=== PATIENT | male | born 1955 | race Caucasian/White ===

== ENCOUNTER 2018-02-06 14:36 | Inpatient (IN) | payer OTHER ==
[~2018-02-06 14:36] MED LIST: Aminocaproic Acid 5 GM/20 ML VIAL ONE; Cardioplegic Soln 1,000 ML BAG ONE; Dextrose 50% Abboject 50 ML SYRINGE ONE; Glycopyrrolate 0.2 MG/ML 5 ML SYRINGE ONE; Heparin 30,000 units/30 ml VIAL ONE; Heparin 5,000 UNITS/ML VIAL ONE; Hydrocortisone Sod Succ/PF 100 mg/2 ml Vial ONE; Lidocaine 2% PF 100 mg/5 ml Syringe ONE; Magnesium 5 GM/10 ML VIAL ONE; Mannitol 12.5 GM/50 ML ONE; PHENYLEPHRINE-NS 100 MCG/ML 10 ML SYRINGE ONE; PROPOFOL 200 MG/20 ML VIAL ONE; Papaverine 60 MG/2 ML VIAL ONE; Potassium Chloride 60 MEQ/30 ML VIAL ONE; Protamine Sulfate 250 MG/25 ML VIAL ONE; Sodium Bicarb 50 MEQ/50 ML VIAL ONE; Thrombin 5000 UNITS/5 ML VIAL ONE; Vecuronium 10 MG VIAL ONE; ePHEDrine/0.9% NaCl/PF SYRINGE 50 mg/10 ml ONE
[2018-02-06] MEDS ORDERED: Fentanyl 100 MCG/2 ML VIAL ONE (14:54)
[2018-02-06] MEDS ORDERED: Midazolam HCl 2 mg/2 ml Vial ONE (14:54)
[2018-02-06] MEDS ORDERED: Heparin 10,000 UNITS/1 ML VIAL ONE ×2 (14:55→15:41)
[2018-02-06 14:56] LABS: #Basophils 0.1 thou/uL (0.0-0.2); #Eosinphils 0.1 thou/uL (0.0-0.7); #Lymphocytes 1.9 thou/uL (1.20-3.40); #Monocytes 0.9 thou/uL (0.11-0.59); %Basophils 0.7 % (0.0-1.0); %Eosinophils 0.8 % (0.0-10.0); %Lymphocytes 14.9 % (21.0-51.0); %Monocytes 7.2 % (0.0-10.0); %Neutrophils 76.5 % (42.0-75.0); Hemoglobin 18.4 g/dL (14.0-18.0); Mean Corpuscular HGB CONC 33.9 g/dL (32.0-36.0); Mean Corpuscular Hemoglobin 32.5 pg (27.0-31.0); Mean Corpuscular Volume 95.7 fL (78.0-98.0); Mean Platelet Volume 7.7 fL (7.4-10.4); Platelet Count 172 thou/uL (130-400); RBC Distribution Width 13.5 % (11.5-14.5); Red Blood Cell (RBC) Count 5.66 mill/uL (4.70-6.10)
[2018-02-06] MEDS ORDERED: Metoprolol Tartrate 5 MG/5 ML VIAL ONE ×2 (15:01→15:15)
[2018-02-06 15:04] LABS: INR-International Normal Ratio 0.9; PTT 30.7 SEC (22.9-36.1); Prothrombin Time 12.7 SEC (12.0-14.7)
[2018-02-06 15:10] LABS: ALT (SGPT) 39 U/L (8-55); AST (SGOT) 61 U/L (5-34); Albumin 4.5 g/dL (3.5-5.0); Alkaline Phosphatase 55 U/L (40-150); Anion Gap 14 mmol/L (10-20); BUN (Urea Nitrogen) 16 mg/dL (8.4-25.7); Bilirubin, Total 1.4 mg/dL (0.2-1.2); Calc. Creatinine Clearance 0 mL/min (70-130); Calcium 9.9 mg/dL (7.8-10.44); Carbon Dioxide 21 mmol/L (22-29); Chloride 101 mmol/L (98-107); Estimated GFR-MDRD 80; Glucose 100 mg/dL (70-105); Potassium 4.2 mmol/L (3.5-5.1); Protein, Total 7.5 g/dL (6.0-8.3); Sodium 132 mmol/L (136-145)
[2018-02-06] MEDS ORDERED: Iopamidol 370 76% 100 ML VIAL ONE (15:12)
[2018-02-06] MEDS ORDERED: Nitroglycerin 50 MG/250 ML BOT 250 ML ONE ×2 (15:15→16:00)
[2018-02-06 15:25] LABS: CKMB 46.1 ng/mL (0-6.6); Troponin I 6.362 ng/mL (< 0.028)
[2018-02-06] MEDS ORDERED: Albumin 5% 0 ML ONE (15:42)
[2018-02-06] MEDS ORDERED: Lidocaine 1% (PF) 30 ML VIAL ONE (15:44)
[2018-02-06] MEDS ORDERED: Fentanyl 250 MCG/5 ML VIAL ONE (15:59)
[2018-02-06] MEDS ORDERED: Midazolam HCl 5 mg/5 ml Vial ONE (15:59)
[2018-02-06] MEDS ORDERED: Vecuronium 10 MG VIAL ONE (16:00)
[2018-02-06] MEDS ORDERED: Phenylephrine HCL 10 MG/ML VIAL ONE (16:00)
[2018-02-06] MEDS ORDERED: Norepinephrine 8 MG/0.9% NS 250 ML ONE (16:00)
[2018-02-06] MEDS ORDERED: Lidocaine 2% PF Inj 2 ML VIAL ONE (18:44)
[2018-02-06] MEDS ORDERED: Insulin Regular 300 UNITS/3 ML VIAL ONE (19:06)
[2018-02-06] MEDS ORDERED: Calcium Chloride 1 GM/10 ML Abboject SYRINGE ONE (19:06)
[2018-02-06] MEDS ORDERED: Rocuronium Bromide 50 MG/5 ML VIAL ONE (19:24)
[2018-02-06] MEDS ORDERED: Amiodarone In Dextrose 200 ML IVPB SCH (20:33)
[2018-02-06] MEDS ORDERED: Hetastarch 6% 500 ML 500 ML IVPB PRN (20:33)
[2018-02-06] MEDS ORDERED: Norepinephrine 8 MG/0.9% NS 250 ML IVPB PRN (20:33)
[2018-02-06] MEDS ORDERED: Bisacodyl 5 MG TAB PO PRN (20:33)
[2018-02-06] MEDS ORDERED: Mag-Al 1200 mg/1200 mg/30 ML UDCUP PO PRN (20:33)
[2018-02-06] MEDS ORDERED: Post-Op Insulin Drip Protocol IVPB ONE (20:33)
[2018-02-06] MEDS ORDERED: Promethazine HCl 25 MG/ML VIAL IM PRN (20:33)
[2018-02-06] MEDS ORDERED: Potassium Chloride 20 MEQ/100 ML PREMIX BAG IVPB PRN (20:33)
[2018-02-06] MEDS ORDERED: Ondansetron HCl/PF 4 MG/2 ML Vial IVP PRN (20:33)
[2018-02-06] MEDS ORDERED: Guaifenesin DM 100-10/5 ML UDCUP PO PRN (20:33)
[2018-02-06] MEDS ORDERED: Bisacodyl 10 MG SUPP PR PRN (20:33)
[2018-02-06] MEDS ORDERED: Nitroglycerin 50 MG/250 ML BOT 250 ML IVPB PRN (20:33)
[2018-02-06] MEDS ORDERED: Fentanyl 100 MCG/2 ML VIAL SLOW IVP PRN (20:33)
[2018-02-06] MEDS ORDERED: Magnesium 2 GM/NS 0.9% 100 ML 2 GM in Premix Bag 1 BAG IVPB SCH (20:33)
[2018-02-06] MEDS ORDERED: Acetaminophen 325 MG TAB PO PRN (20:33)
[2018-02-06] MEDS ORDERED: Phenylephrine 10 MG/NS 250 ML 250 ML IVPB PRN (20:33)
[2018-02-06 20:36] LABS: Actual Bicarbonate (HCO3a) 23.3 mEq/L (22-28); Analyzer IN Cardio ER; Base Excess (BEa) -5.5 mEq/L (-2.0 to +3.0); CO2 Tension 59.2 mmHg (35.0-45.0); Calcium, Ionized 1.17 mmol/L (1.12-1.30); Carboxyhemoglobin (COHb) 2.4 gm% (0.0-3.0); Hemoglobin (Hb) 15.3 g/dL (14.0-18.0); Potassium - ABG Lab 4.29 mmol/L (3.70-5.30)
[2018-02-06] MEDS ORDERED: Dextrose 5% in Water 1,000 ML IV PRN (20:36)
[2018-02-06] MEDS ORDERED: Dextrose 50% Abboject 50 ML SYRINGE SLOW IVP PRN (20:36)
[2018-02-06 20:48] LABS: pH, Arterial 7.21 (7.35-7.45)
[2018-02-06 20:51] LABS: #Eosinphils 0.1 thou/uL (0.0-0.7); #Lymphocytes 2.3 thou/uL (1.20-3.40); #Monocytes 1.2 thou/uL (0.11-0.59); #Neutrophils 15.4 thou/uL (1.40-6.50); %Basophils 0.2 % (0.0-1.0); %Eosinophils 0.6 % (0.0-10.0); %Lymphocytes 12.1 % (21.0-51.0); %Monocytes 6.3 % (0.0-10.0); %Neutrophils 80.8 % (42.0-75.0); Hemoglobin 14.8 g/dL (14.0-18.0); Mean Corpuscular HGB CONC 33.6 g/dL (32.0-36.0); Mean Corpuscular Hemoglobin 32.8 pg (27.0-31.0); Mean Corpuscular Volume 97.5 fL (78.0-98.0); Mean Platelet Volume 7.9 fL (7.4-10.4); Platelet Count 149 thou/uL (130-400); RBC Distribution Width 13.3 % (11.5-14.5); Red Blood Cell (RBC) Count 4.52 mill/uL (4.70-6.10)
[2018-02-06 20:53] LABS: Puncture Site LINE
[2018-02-06] MEDS ORDERED: Sodium Bicarb 50 MEQ/50 ML Abboject 8.4% SYRINGE ONE ×2 (20:53→20:58)
--- NOTE | 2018-02-06 20:53 | RAD ---
CHEST ONE VIEW: 02/06/18 HISTORY: Heart surgery. FINDINGS: Cardiac silhouette is magnified by projection. Pulmonary vasculature upper limits of normal. Mediasti num is midline with postoperative changes. Mediastinal drains are in place. Left thoracostomy tube is directed towards the apex. Tip of an endotracheal catheter overlies the thoracic inlet. Tip of a rig ht subclavian central venous catheter overlies the right atrium. die developer leads overlie the ch est. IMPRESSION: Lines and tubes are in good radiographic position. Postoperative changes of the chest. POS: [facility]
[2018-02-06 20:55] LABS: INR-International Normal Ratio 1.2; PTT 32.1 SEC (22.9-36.1); Prothrombin Time 15.6 SEC (12.0-14.7)
[2018-02-06] MEDS ORDERED: Famotidine/PF 20 mg/2ml Vial SLOW IVP SCH (21:00)
[2018-02-06 21:05] LABS: Anion Gap 9 mmol/L (10-20); BUN (Urea Nitrogen) 16 mg/dL (8.4-25.7); Calc. Creatinine Clearance 0 mL/min (70-130); Carbon Dioxide 23 mmol/L (22-29); Chloride 106 mmol/L (98-107); Estimated GFR-MDRD 65; Glucose 175 mg/dL (70-105); Potassium 4.4 mmol/L (3.5-5.1); Sodium 134 mmol/L (136-145)
[2018-02-06] MEDS: Insulin Regular 300 UNITS/3 ML VIAL SC PRN ×2 (21:17→23:52)
--- NOTE | 2018-02-06 21:18 | CON ---
DATE OF CONSULTATION: 02/06/2018 REASON FOR CONSULTATION: Evaluate patient for urgent coronary artery bypass grafting. HISTORY OF PRESENT ILLNESS: Mr. Flores is a 62-year-old gentleman who presented through the emergency department this evening. He had acute diffuse ST elevation on his EKG, was build was STEMI and was urgently taken to the track laborer. During cardiac catheterization, he was found to have a severe mid to proximal LAD stenosis. He also has a bifurcated circumflex that has severe stenosis in it. Right c oronary has no surgically significant disease. Ejection fraction is approximately 70% with some apic al hypokinesis. Currently, the patient is chest pain free, but he has been having chest pain on and off all day today. PAST MEDICAL HISTORY: Hypertension. SOCIAL HISTORY: He smokes 1-2 packs of cigarettes a day, although his voice sounds like he may have smoked a significant amount more than that in the past. ALLERGIES: None. CURRENT MEDICATIONS: 1. Amlodipine 10 mg daily. 2. Benazepril/HCTZ 20/12.5 b.i.d. 3. ProAir 2 puffs q.i.d. p.r.n. 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 LUNGS: Have bilateral wheezes. HEART: Rhythm is regular. ABDOMEN: Soft, nontender. EXTREMITIES: No edema. He has a right femoral sheath in place. ASSESSMENT AND PLAN: This is a 62-year-old gentleman with a significant tobacco use, history of hype rtension with severe LAD, circumflex disease that was not amenable to stenting. I have discussed cor onary artery bypass grafting with left internal mammary artery to LAD and saphenous vein graft to OM1 and OM2. He is agreeable. We will get him over the operating room as soon as possible.
[2018-02-06] MEDS: Sodium Chloride 0.9% 1,000 ML IV SCH (21:23)
[2018-02-06] MEDS: CEFAZOLIN/Water 2 GM/20 ML SYRINGE SLOW IVP SCH (21:24)
[2018-02-06] MEDS ORDERED: Magnesium 2 GM/50 ML 2 GM in Premix Bag 1 BAG IVPB SCH (21:30)
--- NOTE | 2018-02-06 21:30 | HP ---
DATE OF CONSULTATION: 02/06/2018 REASON FOR ADMISSION: Acute myocardial infarction. HISTORY OF PRESENT ILLNESS: Mr. Deny Flores is a 62-year-old man. He presented to see Dr. Srivastava in her office today because he had chest pain for 2 days, but is coming and going, getting worse. EK G in the office showed ST elevation and ambulance was called. He was transferred to [place]. The patient was given aspirin and intravenous nitroglycerin with improvement, but not complete resolutio n of chest pain. The pain had the pain that is coming and going as mentioned. The patient smoked one and a half pack cigarettes per day. He has history of hypertension. He is no t certain of the blood pressure medicine name. He has reactive airway disease "asthma" and takes Pro Air. ALLERGIES: None known. He is not allergic to iodine. No previous cardiac history. SOCIAL HISTORY: Smokes 1.5 packs of cigarettes per day. FAMILY HISTORY: Unknown at this time. REVIEW OF SYSTEMS: Constitutional: No significant weight gain or loss. Vision: No changes. Heari ng: No changes. Pulmonary: Intermittent need for inhaled bronchodilators. Cardiac: As outlined a danilo. Severe chest pain. Gastrointestinal: No nausea, vomiting, diarrhea. Skin: No rashes. Neur ologic: No unilateral weakness or numbness. Psychiatric: No unusual depression or anxiety. PHYSICAL EXAMINATION: GENERAL: A 62-year-old gentleman with chest pain. VITAL SIGNS: Blood pressure 130/70, pulse initially 90. EYES: Sclerae nonicteric. Mouth mucous membranes moist. NECK: Supple, no lymphadenopathy. LUNGS: Clear, no wheezing, rales or rhonchi. CARDIOVASCULAR: Normal S1, normal S2. There is no murmur, rub or gallop. ABDOMEN: Soft, nontender, no hepatosplenomegaly. EXTREMITIES: Warm, dry, no clubbing or cyanosis. There is no edema. Peripheral pulses seem to be d iminished in the right foot. DIAGNOSTIC DATA: EKG did show some concave up ST elevation on initial EKG. The patient was taken emergently to the cardiac catheterization lab and was found to have complicated LAD and circumflex bifurcation disease, the LAD disease, two lesions 80% proximal then a more distal 70% lesion. The very distal LAD appeared to be occluded at the tip of the apex. They appeared "hazy." The circumflex had a complicated bifurcation disease. The right coronary had 20-30% plaque. Ejection fraction 55%. The anterior wall is normal except for the apex being akinetic. CONCLUSION: 1. Severe 2-vessel coronary artery disease with evidence of myocardial infarction but with patent ar teries. 2. He also has peripheral vascular disease, noted to have superficial femoral artery occlusion at th e time of catheterization, also some iliac disease and possibly a small dissection in the iliac area, but it appears stable with good flow. PLAN: The patient was advised to undergo emergent coronary artery bypass grafting. This is being ar ranged.
[2018-02-06 21:39] VITALS: BMI 28.5
[2018-02-06] MEDS: Ketorolac Tromethamine 30 MG/ML VIAL IVP SCH (23:31)
[2018-02-06] MEDS ORDERED: Amiodarone HCl 450 MG, Admixture Fee 1 EACH in Dextrose 5% in Water 250 ML IVPB SCH (23:45)
--- NOTE | 2018-02-07 01:30 | OP ---
DATE OF OPERATION: 02/06/2018 PREOPERATIVE DIAGNOSES: Coronary artery disease/ST-elevation myocardial infarction. POSTOPERATIVE DIAGNOSES: Coronary artery disease/ST-elevation myocardial infarction. PROCEDURES: Coronary artery bypass grafting x3: 1. Left internal mammary artery to 2.0 mm mid left anterior descending - good conduit and target. 2. Reverse saphenous vein in sequence to 2.0 mm OM1 and 1.0 mm OM2 - good conduit with small distal target. SURGEON: Rubin Chi MD ANESTHESIA: General endotracheal - Dr. Gagan Martinez and Sajan Chu CRNA PUMP TIME: 77 minutes. CROSS-CLAMP TIME: 33 minutes. LOW CORE TEMP: 32-degree Celsius. OCCUPATIONAL NURSE: Juan Gabriel. DRAINS: 24-Peruvian chest tube x2. DRIPS: Amiodarone. TRANSFUSIONS: None. DESCRIPTION OF PROCEDURE: After consent was obtained, the patient was brought to the operating room and placed supine on the operating room table. Appropriate anesthetic monitor was placed and general endotracheal anesthesia induced. Chest, abdomen, and legs were prepped and draped in usual sterile fashion. Greater saphenous vein was harvested from the left lower extremity, utilizing an endoscopic technique. Wound was irrigated and closed in layers. Median sternotomy was performed. Left rn international al mammary artery was harvested as a pedicle graft. The patient was systemically heparinized. Dista l pedicle was divided and infused with papaverine. Thymic fat and pericardium were divided with elec trocautery. Pericardial stay sutures placed. Aortic and atrial cannulation was performed. After ad equate heparinization, the patient was placed on cardiopulmonary bypass. Distal targets were marked. Aortic cross-clamp was applied and antegrade sanguinous cardioplegic arrest obtained. One liter of antegrade cold [place] cardioplegia was given. Topical cold solution was used. Reverse saphenous vein was anastomosed in a cvsx-df-emor fashion with OM1 and end-to-side fashion with the OM2. The OM 2 was dilated with a 1-mm probe prior to completion of anastomosis. Mammary artery was brought throu gh a window in the pericardium and anastomosed the mid LAD in end-to-side fashion with running 7-0 Pr olene suture. On release of mammary clamps, good hooding anastomosis and good distal flow. Pedicle screw with interrupted 6-0 Prolene suture. Cross-clamp was removed. Partial occluding clamp placed. Saphenous vein was anastomosed the aortic root with running 6-0 Prolene suture. Partial occluding clamp was removed and grafts deaired. On removing the partial occluding clamp, the patient fibrillat ed. Multiple attempts at defibrillation were performed. Lidocaine and amiodarone loading dose were given. The patient was then placed on amiodarone drip. The patient was eventually defibrillated. T he potassium was checked and came back at 6.2. The patient was given insulin, glucose, and calcium. Recheck of potassium came back at 5. Patient maintained sinus rhythm after loading the dose of amio darone. The patient was also given magnesium. The amiodarone drip was started. The patient was war med and weaned from cardiopulmonary bypass. After resumption of sinus rhythm, good hemodynamics, and temperature greater than 36.5, bypass was discontinued. Transfusions were given. Protamine was adm inistered. Decannulation was performed and pursestring sutures secured. A 24-Peruvian chest tubes x2 were placed in mediastinum. Sternum was treated with vancomycin paste. After adequate hemostasis lucio d been obtained, sternum was closed with #7 wire, 3 in the manubrium and 1 in the distal sternum. Fi ve zip ties were placed in the body of the sternum. Sternum was treated with platelet-rich plasma an d wires twisted. Zip ties were tightened and cut. Wounds irrigated, treated with platelet-poor plas ma, and closed in multiple layers. Needle, sponge, and instrument counts were all reported as correc t at the end of the procedure. The patient was transferred to the intensive care unit in stable, but critical condition.
[2018-02-07] MEDS: Fentanyl 100 MCG/2 ML VIAL SLOW IVP PRN ×4 (01:43→21:35)
[2018-02-07 02:38] LABS: Hemoglobin 15.1 g/dL (14.0-18.0)
[2018-02-07 02:50] LABS: #Monocytes 0.9 thou/uL (0.11-0.59); #Neutrophils 11.1 thou/uL (1.40-6.50); %Basophils 0.1 % (0.0-1.0); %Eosinophils 0.1 % (0.0-10.0); %Lymphocytes 7.8 % (21.0-51.0); %Monocytes 6.9 % (0.0-10.0); %Neutrophils 85.1 % (42.0-75.0); Mean Corpuscular HGB CONC 33.3 g/dL (32.0-36.0); Mean Corpuscular Hemoglobin 32.2 pg (27.0-31.0); Mean Corpuscular Volume 96.6 fL (78.0-98.0); Platelet Count 141 thou/uL (130-400); RBC Distribution Width 13.4 % (11.5-14.5); Red Blood Cell (RBC) Count 4.67 mill/uL (4.70-6.10)
[2018-02-07 02:51] LABS: Potassium 4.4 mmol/L (3.5-5.1)
[2018-02-07] MEDS: HYDROcodone/Acetaminophen 5/325 mg Tablet PO PRN ×5 (03:10→21:11)
[2018-02-07 03:14] LABS: Anion Gap 11 mmol/L (10-20); BUN (Urea Nitrogen) 19 mg/dL (8.4-25.7); Calc. Creatinine Clearance 102 mL/min (70-130); Calcium 7.9 mg/dL (7.8-10.44); Carbon Dioxide 20 mmol/L (22-29); Chloride 108 mmol/L (98-107); Estimated GFR-MDRD 70; Glucose 147 mg/dL (70-105); Potassium 4.3 mmol/L (3.5-5.1); Sodium 135 mmol/L (136-145)
[2018-02-07] MEDS: Insulin Regular 300 UNITS/3 ML VIAL SC PRN (04:33)
[2018-02-07] MEDS: CEFAZOLIN/Water 2 GM/20 ML SYRINGE SLOW IVP SCH ×2 (05:00→12:58)
[2018-02-07] MEDS: Ketorolac Tromethamine 30 MG/ML VIAL IVP SCH ×4 (05:24→23:36)
[2018-02-07 06:55] LABS: Hemoglobin A1c 5.2 % (4.0-6.0)
[2018-02-07] MEDS: Sodium Chloride 0.9% 1,000 ML IV SCH ×2 (07:18→17:05)
[2018-02-07] MEDS: Famotidine 20 MG TAB PO SCH ×2 (08:34→20:37)
[2018-02-07] MEDS: Aspirin 325 MG TAB PO SCH (08:34)
[2018-02-07] MEDS: Magnesium 2 GM/50 ML 2 GM in Premix Bag 1 BAG IVPB SCH (08:35)
--- NOTE | 2018-02-07 08:46 | RAD ---
PORTABLE AP CHEST XRAY: DATE: 02/07/2018. HISTORY: Post open heart surgery. Followup evaluation. COMPARISON: 02/06/2018. FINDINGS: The endotracheal tube has been removed. The right subclavian central venous catheter, mediastinal dr ain, and left-sided thoracostomy tube remains stable in position. Median sternotomy wires are again present. Cardiac silhouette and pulmonary vasculature e within normal limits. There is mild subsegm ental atelectasis in the left mid lung zone, but there has been improvement in the linear opacities w ithin the left upper lung zone compared to the prior exam. No other interval change. IMPRESSION: Interval removal of the endotracheal tube with improvement in atelectasis in the left upper lung zone . There is mild atelectasis now present in the left mid lung zone and at the medial right lung base. POS: [facility]
[2018-02-07] MEDS ORDERED: Magnesium 2 GM/NS 0.9% 100 ML 2 GM in Premix Bag 1 BAG IVPB SCH (09:00)
[2018-02-07] MEDS ORDERED: Amiodarone 200 MG TAB PO SCH (10:15)
[2018-02-07] MEDS ORDERED: Colchicine 0.6 MG TAB PO SCH (10:15)
--- NOTE | 2018-02-07 10:34 | PRG ---
DATE OF SERVICE: 02/07/2018 SUBJECTIVE: Mr. Flores is doing okay. He is having a lot chest pain in the postoperative period. PHYSICAL EXAMINATION: VITAL SIGNS: Blood pressure 104/60, pulse 66 regular. LUNGS: Clear. Some occasional rhonchi. CARDIAC: Normal S1, normal S2. IMAGING: EKG reveals some concave up ST elevation in the postoperative period compatible with perica rditis. In talking further with Mr. Flores, he did have probably the most severe chest pain 2 days pr ior to going to the doctor yesterday and had recurrent chest pain following that. ASSESSMENT: 1. Status post myocardial infarction related to the distal LAD probably occurred a few days ago. 2. Chest pain much that may have been pericarditis in the post myocardial infarction. 3. Status post emergency bypass surgery for complicated coronary artery disease as outlined above. PLAN: 1. We will start low dose colchicine as a lot of his pain now is probably pericarditis. 2. High risk for atrial fibrillation, may need amiodarone. 3. Inhaled bronchodilators. 4. We will go ahead and start at least moderate dose of amiodarone as there is a very high probabili ty of going into atrial fibrillation.
[2018-02-07] MEDS: Atorvastatin Calcium 40 MG TAB PO SCH (20:36)
[2018-02-07] MEDS: Colchicine 0.6 MG TAB PO SCH (20:37)
[2018-02-07] MEDS: Amiodarone 200 MG TAB PO SCH (20:37)
[2018-02-08] MEDS: Sodium Chloride 0.9% 1,000 ML IV SCH (01:49)
[2018-02-08] MEDS: HYDROcodone/Acetaminophen 5/325 mg Tablet PO PRN ×4 (02:11→21:14)
[2018-02-08] MEDS: Fentanyl 100 MCG/2 ML VIAL SLOW IVP PRN (05:17)
[2018-02-08 05:35] LABS: Anion Gap 7 mmol/L (10-20); BUN (Urea Nitrogen) 18 mg/dL (8.4-25.7); Calc. Creatinine Clearance 129 mL/min (70-130); Calcium 8.2 mg/dL (7.8-10.44); Carbon Dioxide 26 mmol/L (22-29); Chloride 104 mmol/L (98-107); Estimated GFR-MDRD Greater than 90; Glucose 104 mg/dL (70-105); Potassium 4.4 mmol/L (3.5-5.1); Sodium 133 mmol/L (136-145)
[2018-02-08 05:59] LABS: #Lymphocytes 1.1 thou/uL (1.20-3.40); #Monocytes 0.6 thou/uL (0.11-0.59); #Neutrophils 5.6 thou/uL (1.40-6.50); %Basophils 0.1 % (0.0-1.0); %Eosinophils 0.1 % (0.0-10.0); %Lymphocytes 15.4 % (21.0-51.0); %Neutrophils 76.5 % (42.0-75.0); Hemoglobin 12.2 g/dL (14.0-18.0); Mean Corpuscular HGB CONC 33.5 g/dL (32.0-36.0); Mean Corpuscular Hemoglobin 32.7 pg (27.0-31.0); Mean Corpuscular Volume 97.5 fL (78.0-98.0); Mean Platelet Volume 8.3 fL (7.4-10.4); PLT Morphology Comment Appears Decreased; Platelet Count 98 thou/uL (130-400); RBC Distribution Width 13.2 % (11.5-14.5); RBC Morphology Normal; Red Blood Cell (RBC) Count 3.74 mill/uL (4.70-6.10); White Blood Cell (WBC) Count 7.3 thou/uL (4.8-10.8)
[2018-02-08 06:12] LABS: Band 7 % (5-11); Lymphocytes 7 % (21-51); MDiff Complete? YES; Monocytes 9 % (0-10); Neutrophil 76 % (42-75); Reactive Lymphocytes 1 % (0-10)
[2018-02-08] MEDS: Ketorolac Tromethamine 30 MG/ML VIAL IVP SCH ×3 (06:15→17:40)
--- NOTE | 2018-02-08 08:41 | EKG ---
Test Reason : Blood Pressure : / mmHG Vent. Rate : 054 BPM Atrial Rate : 054 BPM P-R Int : 162 ms QRS Dur : 094 ms QT Int : 478 ms P-R-T Axes : 025 037 040 degrees QTc Int : 453 ms Sinus bradycardia Possible Acute pericarditis ST elevation diffusely, must also consider early repolarization. Abnormal ECG When compared with ECG of 06-FEB-2018 14:38, (Unconfirmed) Vent. rate has decreased BY [address] less elevated in Lateral leads Confirmed by IESHA BRANCH ([id number]) on 02/08/2018 8:40:44 AM Referred By: NAFISA Confirmed By:IESHA BRANCH
[2018-02-08] MEDS: Amiodarone 200 MG TAB PO SCH ×2 (09:15→21:13)
[2018-02-08] MEDS: Colchicine 0.6 MG TAB PO SCH ×2 (09:15→21:13)
[2018-02-08] MEDS: Aspirin 325 MG TAB PO SCH (09:15)
[2018-02-08] MEDS: Magnesium 2 GM/50 ML 2 GM in Premix Bag 1 BAG IVPB SCH (09:16)
[2018-02-08] MEDS: Famotidine 20 MG TAB PO SCH ×2 (09:16→21:13)
--- NOTE | 2018-02-08 10:02 | RAD ---
FRONTAL VIEW CHEST: COMPARISON: Previous day. INDICATION: Thoracic surgery, followup. FINDINGS: Right subclavian venous catheter remains. Prior left thoracostomy tube is no longer visualized. Pro minence of the cardiomediastinal silhouette and pulmonary vasculature present. There is a pleural-ba sed density at the inferior left chest indicating pleural fluid. Subtle left rib deformities are sta ble. IMPRESSION: 1. Evidence of fluid overload. 2. Removal of prior left chest tube. 3. Recommend continued followup. POS: [facility]
[2018-02-08] MEDS ORDERED: Bisacodyl 5 MG TAB PO PRN (10:58)
[2018-02-08] MEDS ORDERED: diphenhydrAMINE 25 MG CAP PO PRN (10:58)
[2018-02-08] MEDS ORDERED: Zolpidem Tartrate 5 MG TAB PO PRN (10:58)
[2018-02-08] MEDS ORDERED: Artificial Tears 18 DROP/0.9 ML EA EYE PRN (10:58)
[2018-02-08] MEDS ORDERED: Mag-Al 1200 mg/1200 mg/30 ML UDCUP PO PRN (10:58)
[2018-02-08] MEDS ORDERED: Guaifenesin DM 100-10/5 ML UDCUP PO PRN (10:58)
[2018-02-08] MEDS ORDERED: Mineral Oil ENEMA PR PRN (10:58)
[2018-02-08] MEDS ORDERED: Nitroglycerin 0.4 MG TAB (25 Tab Bottle) SL PRN (10:58)
[2018-02-08] MEDS ORDERED: Bisacodyl 10 MG SUPP PR PRN (10:58)
[2018-02-08] MEDS ORDERED: guaiFENesin ER 600 MG TAB PO SCH (11:15)
[2018-02-08] MEDS ORDERED: Furosemide 40 MG/4 ML VIAL SLOW IVP SCH (11:15)
[2018-02-08] MEDS: guaiFENesin ER 600 MG TAB PO SCH (21:12)
[2018-02-08] MEDS: Atorvastatin Calcium 40 MG TAB PO SCH (21:13)
[2018-02-08] MEDS: Furosemide 40 MG TAB PO SCH (21:13)
[2018-02-09] MEDS: Ketorolac Tromethamine 30 MG/ML VIAL IVP SCH ×5 (00:25→23:57)
[2018-02-09 05:21] LABS: #Lymphocytes 0.9 thou/uL (1.20-3.40); #Monocytes 0.8 thou/uL (0.11-0.59); #Neutrophils 6.3 thou/uL (1.40-6.50); %Basophils 0.4 % (0.0-1.0); %Eosinophils 0.2 % (0.0-10.0); %Lymphocytes 11.5 % (21.0-51.0); %Monocytes 9.7 % (0.0-10.0); %Neutrophils 78.3 % (42.0-75.0); Mean Corpuscular HGB CONC 33.1 g/dL (32.0-36.0); Mean Corpuscular Hemoglobin 32.3 pg (27.0-31.0); Mean Corpuscular Volume 97.7 fL (78.0-98.0); Platelet Count 101 thou/uL (130-400); RBC Distribution Width 13.1 % (11.5-14.5); Red Blood Cell (RBC) Count 4.01 mill/uL (4.70-6.10)
[2018-02-09 05:36] LABS: Anion Gap 12 mmol/L (10-20); BUN (Urea Nitrogen) 17 mg/dL (8.4-25.7); Calc. Creatinine Clearance 128 mL/min (70-130); Calcium 8.8 mg/dL (7.8-10.44); Carbon Dioxide 25 mmol/L (22-29); Chloride 104 mmol/L (98-107); Estimated GFR-MDRD Greater than 90; Glucose 95 mg/dL (70-105); Potassium 4.3 mmol/L (3.5-5.1); Sodium 137 mmol/L (136-145)
[2018-02-09] MEDS: hydrALAZINE 20 MG/ML VIAL SLOW IVP PRN (06:23)
[2018-02-09] MEDS ORDERED: Lisinopril 5 MG TAB PO SCH ×2 (09:00→13:08)
[2018-02-09] MEDS ORDERED: Metoprolol Tartrate 25 MG TAB PO SCH ×2 (09:00→13:00)
[2018-02-09] MEDS: Famotidine 20 MG TAB PO SCH ×2 (09:23→21:53)
[2018-02-09] MEDS: Furosemide 40 MG TAB PO SCH ×2 (09:23→21:53)
[2018-02-09] MEDS: Colchicine 0.6 MG TAB PO SCH ×2 (09:23→21:51)
[2018-02-09] MEDS: Amiodarone 200 MG TAB PO SCH ×2 (09:23→21:52)
[2018-02-09] MEDS: Aspirin 325 mg Enteric Coated Tablet PO SCH (09:23)
[2018-02-09] MEDS: guaiFENesin ER 600 MG TAB PO SCH ×2 (09:23→21:53)
--- NOTE | 2018-02-09 10:45 | RAD ---
PORTABLE VIEW CHEST: COMPARISON: Previous day. CLINICAL HISTORY: Thoracic surgery, followup. FINDINGS: There has been development of patchy left perihilar opacification. The remains prominence of the car diac silhouette and pulmonary vasculature. Increasing volume of left pleural fluid is present. Righ t subclavian venous catheter is again seen. IMPRESSION: Findings to indicate progressive edema and pleural fluid on the left. Superimposed pneumonitis is no t excluded. Continued followup is warranted. POS: [facility]
--- NOTE | 2018-02-09 12:56 | PDOC.CTH ---
<Ashlie Garcia - Last Filed: 02/09/18 17:22> Cardiology Progress Note - Subjective The pt seen and examined. No overnight events. No cardiac complaints. He is resting well at this AM. - Objective Vital Signs Temp Pulse Resp BP BP Pulse Ox 02/09/18 12:19 169/92 H 02/09/18 11:30 98.1 F 85 16 188/96 H 95 02/09/18 07:44 90 L 02/09/18 07:38 90 18 90 L 02/09/18 07:20 98.2 F 95 18 186/95 H 96 02/09/18 06:23 84 181/93 H 02/09/18 04:00 98.0 F 84 20 181/93 H 94 L Weight 211 lb 4 oz 02/08/18 02/09/18 02/10/18 06:59 06:59 06:59 Intake Total 3257 2531.5 Output Total 1600 3250 Balance 1657 -718.5 - Physical Examination General/Neuro: alert & oriented x3 Neck: no JVD present Lungs: CTA Heart: RRR Abdomen: soft Extremities: other: (No edema) - Telemetry Telemetry Rhythm: SR 80-90s - Labs Result Diagrams: 02/09/18 04:31 02/09/18 04:31 Troponin/CKMB CK-MB (CK-2) 46.1 ng/mL (0-6.6) H* 02/06/18 14:43 Troponin I 7.010 ng/mL (< 0.028) H* 02/07/18 10:08 - Assessment/Plan 1. CAD with s/p CABG x3 with LEWIS-LAD, RSVG-OM1 and OM2 on 02/06/18 - stable with BBlocker, MARIIA, ASA, statin, and Amiodarone 400mg BID since @ 2100 on for Afib prevention. 2. HTN - Increase Metoprolol from 12.5mg to 25mg BID; Lisinopril was increased from 5mg to 10mg qd. 3. Hyperlipidemia - on Statin 4. PAD @ Lt SFA? - cont. to monitor 5. Asthma? - stable 6. Current smoker - smoking cessation education given to the pt. MAR reviewed <addendum> SBP at 1520 was > 160 after the pt received additional Metoprolol and lisinopril dosage @ 1400s. Will start Norvasc 5mg qd from today. Review of Systems - Review of Systems Constitutional: reports: no symptoms reported EENTM: reports: no symptoms reported Respiratory: reports: no symptoms reported Cardiac (ROS): reports: no symptoms reported ABD/GI: reports: no symptoms reported : reports: no symptoms reported <Shiloh Lo - Last Filed: 02/09/18 22:34> Cardiology Progress Note - Objective Vital Signs Temp Pulse Pulse Pulse Resp BP BP 02/09/18 18:56 02/09/18 18:55 02/09/18 16:13 98.4 F 83 18 02/09/18 15:11 87 90 161/87 H 167/81 H 02/09/18 14:01 83 20 02/09/18 12:19 02/09/18 11:30 98.1 F 85 16 BP Pulse Ox Pulse Ox Pulse Ox 02/09/18 18:56 91 L 02/09/18 18:55 94 L 02/09/18 16:13 168/94 H 93 L 02/09/18 15:11 95 95 02/09/18 14:01 95 02/09/18 12:19 169/92 H 02/09/18 11:30 188/96 H 95 Weight 211 lb 4 oz 02/08/18 02/09/18 02/10/18 06:59 06:59 06:59 Intake Total 3257 2531.5 960 Output Total 1600 3250 700 Balance 1657 -718.5 260 - Labs Result Diagrams: 02/09/18 04:31 02/09/18 04:31 Troponin/CKMB CK-MB (CK-2) 46.1 ng/mL (0-6.6) H* 02/06/18 14:43 Troponin I 7.010 ng/mL (< 0.028) H* 02/07/18 10:08 - Assessment/Plan Pt. seen and evaluated by me. I agree with the A/P by the SOAP INSPECTOR. We have discussed the pt. and the plan.Chest clear RRR.
[2018-02-09] MEDS ORDERED: Amlodipine 5 MG TAB PO SCH (17:30)
[2018-02-09] MEDS ORDERED: Communication Order-Pharmacy FS SCH (20:45)
[2018-02-09] MEDS: Atorvastatin Calcium 40 MG TAB PO SCH (21:52)
[2018-02-09] MEDS: Metoprolol Tartrate 25 MG TAB PO SCH (21:54)
[2018-02-10] MEDS: hydrALAZINE 20 MG/ML VIAL SLOW IVP PRN (03:03)
[2018-02-10 05:39] LABS: #Monocytes 0.8 thou/uL (0.11-0.59); #Neutrophils 5.7 thou/uL (1.40-6.50); %Basophils 0.6 % (0.0-1.0); %Eosinophils 0.4 % (0.0-10.0); %Lymphocytes 13.5 % (21.0-51.0); %Monocytes 10.3 % (0.0-10.0); %Neutrophils 75.2 % (42.0-75.0); Hemoglobin 13.4 g/dL (14.0-18.0); Mean Corpuscular HGB CONC 33.4 g/dL (32.0-36.0); Mean Corpuscular Hemoglobin 32.4 pg (27.0-31.0); Mean Corpuscular Volume 96.8 fL (78.0-98.0); Mean Platelet Volume 7.7 fL (7.4-10.4); Platelet Count 157 thou/uL (130-400); Red Blood Cell (RBC) Count 4.16 mill/uL (4.70-6.10); White Blood Cell (WBC) Count 7.6 thou/uL (4.8-10.8)
[2018-02-10 05:45] LABS: Anion Gap 14 mmol/L (10-20); BUN (Urea Nitrogen) 21 mg/dL (8.4-25.7); Calc. Creatinine Clearance 135 mL/min (70-130); Calcium 9.2 mg/dL (7.8-10.44); Carbon Dioxide 21 mmol/L (22-29); Chloride 104 mmol/L (98-107); Estimated GFR-MDRD Greater than 90; Glucose 88 mg/dL (70-105); Potassium 3.8 mmol/L (3.5-5.1); Sodium 135 mmol/L (136-145)
[2018-02-10] MEDS: HYDROcodone/Acetaminophen 5/325 mg Tablet PO PRN (06:17)
[2018-02-10] MEDS ORDERED: Lisinopril 10 MG TAB PO SCH (09:00)
[2018-02-10] MEDS ORDERED: Amlodipine 5 MG TAB PO SCH (09:00)
[2018-02-10] MEDS ORDERED: Metolazone 2.5 MG TAB PO ONE (09:00)
[2018-02-10] MEDS: Famotidine 20 MG TAB PO SCH ×2 (09:29→20:25)
[2018-02-10] MEDS: Colchicine 0.6 MG TAB PO SCH ×2 (09:29→20:25)
[2018-02-10] MEDS: guaiFENesin ER 600 MG TAB PO SCH ×2 (09:29→20:25)
[2018-02-10] MEDS: Lisinopril 10 MG TAB PO SCH (09:29)
[2018-02-10] MEDS: Furosemide 20 MG TAB PO SCH ×2 (09:30→13:33)
[2018-02-10] MEDS: Aspirin 325 mg Enteric Coated Tablet PO SCH (09:30)
[2018-02-10] MEDS: Amiodarone 200 MG TAB PO SCH ×2 (09:30→20:24)
[2018-02-10] MEDS: Amlodipine 5 MG TAB PO SCH (09:30)
[2018-02-10] MEDS: Metoprolol Tartrate 25 MG TAB PO SCH ×2 (09:31→20:25)
--- NOTE | 2018-02-10 10:54 | PRG ---
DATE OF SERVICE: 02/10/2018 HISTORY: Mr. Flores is really doing great. Feels well, he has done extremely well. PHYSICAL EXAMINATION: VITAL SIGNS: Blood pressure, however, is high 184/99, pulse 80. LUNGS: Clear. CARDIAC: Normal S1, normal S2. ABDOMEN: Soft, nontender. EXTREMITIES: No edema. ASSESSMENT: 1. Status post myocardial infarction. 2. Suspect post-myocardial infarction pericarditis. 3. Status post bypass surgery. 4. History of heavy smoking. 5. Hypertension. PLAN: 1. He is on beta ani. 2. In view of his cough, may need to change from an MARIIA inhibitor to an ARB. We will see how he mcdonnell s today. 3. Continue amiodarone while here. 4. Continue colchicine for about a month. 5. If he looks well tomorrow, could consider discharging him home tomorrow.
[2018-02-10] MEDS: Atorvastatin Calcium 40 MG TAB PO SCH (20:25)
[2018-02-11] MEDS: HYDROcodone/Acetaminophen 5/325 mg Tablet PO PRN ×2 (01:08→09:53)
--- NOTE | 2018-02-11 07:20 | DIS ---
DATE OF ADMISSION: 02/06/2018 DATE OF DISCHARGE: 02/11/2018 DIAGNOSES: 1. Coronary artery disease. 2. History of tobacco abuse. 3. Hypertension. 4. Asthma. PROCEDURES: 1. Cardiac catheterization. 2. Emergency coronary bypass grafting x3; 1) left internal mammary artery to LAD, 2) saphenous vein in sequence to OM1 and OM2. DESCRIPTION OF HOSPITAL STAY: Mr. Flores was brought into the emergency department having chest pain and acute diffuse ST elevation. He was taken to lab aide and found to have LAD and OM critical disease with continued chest pain on the table. He was urgently taken to the operating room and underwent bypass as above. He has done well postoperatively. He had some rhythm issues coming off pump which were more than likely due to hyperkalemia which when corrected his rhythm stabilized. He has been left on p.o. amiodarone. The remainder of his hospital stay has been spent recovering from surgery. At the time of discharge he is ambulatory, tolerating a regular diet, having good bowel and bladder function. Incisions are clean and dry without evidence of infection. DISCHARGE MEDICATIONS: 1. Aspirin 325 mg every day. 2. Lopressor 25 mg b.i.d. 3. Zestril 20 mg at bedtime. 4. Lipitor 40 mg at bedtime. 5. Colchicine 0.6 mg b.i.d. 6. Lasix 40 mg b.i.d. for 10 days. 7. Amiodarone 200 mg b.i.d. for 2 months. 8. Norvasc 10 mg daily. 9. ProAir as per his home use. Follow up is with me in [address] Connell in a month. CH[facility]
[2018-02-11] MEDS: Amiodarone 200 MG TAB PO SCH (08:48)
[2018-02-11] MEDS: Amlodipine 5 MG TAB PO SCH (08:48)
[2018-02-11] MEDS: Furosemide 20 MG TAB PO SCH (08:49)
[2018-02-11] MEDS: guaiFENesin ER 600 MG TAB PO SCH (08:49)
[2018-02-11] MEDS: Famotidine 20 MG TAB PO SCH (08:49)
[2018-02-11] MEDS: Colchicine 0.6 MG TAB PO SCH (08:49)
[2018-02-11] MEDS: Aspirin 325 mg Enteric Coated Tablet PO SCH (08:49)
[2018-02-11] MEDS: Lisinopril 10 MG TAB PO SCH (08:50)
[2018-02-11] MEDS: Metoprolol Tartrate 25 MG TAB PO SCH (08:50)
[2018-02-11] MEDS ORDERED: Potassium Chloride 20 MEQ TAB PO SCH (09:30)
--- NOTE | 2018-02-11 10:04 | PRG ---
DATE OF SERVICE: 02/11/2018 SUBJECTIVE: Mr. Flores is feeling well. No chest pain or pressure. No heaviness or squeezing. He h as been up and around, feeling well, ready to go home. OBJECTIVE: VITAL SIGNS: Blood pressure 138/91, pulse 88 and regular. LUNGS: Clear, sound much better. CARDIAC: Normal S1, normal S2. ABDOMEN: Soft, nontender. EXTREMITIES: No edema. EKG shows an improved pattern. ASSESSMENT: 1. Status post recent myocardial infarction, likely at the distal LAD. 2. Pericarditis likely post-myocardial infarction. 3. Status post bypass surgery successfully. 4. Hypertension. 5. Mild hypokalemia, potassium is 3.8. PLAN: 1. To go home on colchicine 0.6 mg twice a day. We would recommend this for 2 months. 2. Potassium 10 mEq a day. 3. Lisinopril 20 mg a day. 4. Toprol-XL 50 mg a day. 5. Stop Amiodarone. 6. Atorvastatin 40 mg a day. 7. Ask him to bring all medicines with him. He is also on furosemide 40 mg twice a day for a short time. When he goes off of furosemide, the potassium should be stopped. We asked him to come back an d see us in the office in 2 weeks with Clara Ceballos.
[2018-02-11 11:53] VITALS: TEMP 98
[2018-02-11 14:36] VITALS: BP 159/85
[2018-02-12] MEDS ORDERED: Potassium Chloride 10 MEQ TAB PO SCH (08:00)
== END 2018-02-11 12:03 | disposition home or self-care (01) | DRG 234 ==
LOC: ERS 14:36 → CCU 14:42 → 2NO 02-08 15:50
PROVIDERS: ADMIT Internal Medicine Cardiovascular Disease; ATTEND Internal Medicine Cardiovascular Disease
PROC: 02100Z9 Bypass Coronary Artery, One Artery from Left Internal Mammary, Open Approach (ICD-10-PCS; principal; 2018-02-06)
PROC: 4A023N7 Measurement of Cardiac Sampling and Pressure, Left Heart, Percutaneous Approach (ICD-10-PCS; 2018-02-06)
PROC: 021109W Bypass Coronary Artery, Two Arteries from Aorta with Autologous Venous Tissue, Open Approach (ICD-10-PCS; 2018-02-06)
PROC: 06BQ4ZZ Excision of Left Saphenous Vein, Percutaneous Endoscopic Approach (ICD-10-PCS; 2018-02-06)
PROC: 5A1221Z Performance of Cardiac Output, Continuous (ICD-10-PCS; 2018-02-06)
PROC: B2111ZZ Fluoroscopy of Multiple Coronary Arteries using Low Osmolar Contrast (ICD-10-PCS; 2018-02-06)
PROC: B2151ZZ Fluoroscopy of Left Heart using Low Osmolar Contrast (ICD-10-PCS; 2018-02-06)
DX: I21.3 ST elevation (STEMI) myocardial infarction of unspecified site (principal); I31.9 Disease of pericardium, unspecified; F17.210 Nicotine dependence, cigarettes, uncomplicated; I10 Essential (primary) hypertension; J45.909 Unspecified asthma, uncomplicated; I25.10 Atherosclerotic heart disease of native coronary artery without angina pectoris; I73.9 Peripheral vascular disease, unspecified; I77.1 Stricture of artery; E78.5 Hyperlipidemia, unspecified; E87.5 Hyperkalemia
CPT/HCPCS: 36415; 36416; 71045; 76942; 80048; 80053; 82553; 82805; 83036; 83690; 84484; 85025; 85347; 85610; 85730; 86850; 86900; 86901; 93005; 93010; 93458; 93798; 94002; 94003; 94150; 94640; 94760; 99152; 99153; C1769; J0282; J0360; J1644; J1720; J1815; J1885; J1940; J2001; J2150; J2250; J2270; J2370; J2405; J2440; J2704; J2720; J3010; J3370; J3475; J3480; J7050; J7070; J7620; P9045; S0017; S0028